=== PATIENT | male | born 1995 | race Two or more races ===

== ENCOUNTER 2019-12-17 20:11 | Emergency (ER) | payer BC, OTHER ==
[~2019-12-17] VITALS: Ht 193 cm; Wt 84.0 kg
--- NOTE | 2019-12-17 20:18 | NUR ---
ATTEMPTED TO CALL PT FROM LOBBY TO TRIAGE. PT NIL [phone]
[2019-12-17] MEDS ORDERED: L.E.T SOLUTION TP ONE ×4 (20:56→21:00)
[2019-12-17] MEDS ORDERED: PLEASE ENTER ALLERGIES MC SCH (21:00)
[2019-12-17] MEDS ORDERED: SULFAMETH./TRIMETHOPRIM DS 800MG/160MG TABLET ONE (22:40)
[2019-12-17] MEDS ORDERED: NEOSPORIN OINT. PKT 1 PACKET ONE (22:42)
--- NOTE | 2019-12-17 22:51 | NUR ---
WOUND DRESSED, SPLINT APPLIED BY EMT. PATIENT VERBALIZED UNDERSTANDING OF DISCHARGE INSTRUCTIONS AND SELF CARE INSTRUCTIONS AT HOME. NO NOTED ACUTE DISTRESS. VITAL SIGNS STABLE. AMBULATORY WITH FRIEND TO DISCHARGE DESK.
[2019-12-17 22:52] VITALS: BP 112/76
== END 2019-12-17 22:53 | disposition home or self-care (01) ==
LOC: ED 21:39
DX: S60.512A Abrasion of left hand, initial encounter (principal); S60.511A Abrasion of right hand, initial encounter; S00.81XA Abrasion of other part of head, initial encounter; S80.212A Abrasion, left knee, initial encounter; S80.211A Abrasion, right knee, initial encounter; S09.90XA Unspecified injury of head, initial encounter; W18.39XA Other fall on same level, initial encounter; Y93.73 Activity, racquet and hand sports; Y92.89 Other specified places as the place of occurrence of the external cause; Y99.8 Other external cause status
CPT/HCPCS: 29125; 99284